=== PATIENT | male | born 2000 | race Caucasian/White ===

== ENCOUNTER 2021-10-04 04:22 | Outpatient (CLI) | payer BC, SELFPAY | END 2021-10-04 04:23 | disposition home or self-care (01) | LOC: AMB 10-21 19:15 | PROVIDERS: PCP Family Medicine; Visit Provider Family Medicine | DX: F91.9 Conduct disorder, unspecified (principal); F10.129 Alcohol abuse with intoxication, unspecified | CPT/HCPCS: A0425; A0427 ==

== ENCOUNTER 2021-10-04 04:53 | Emergency (ER) | payer BC, SELFPAY ==
[2021-10-04 05:10] VITALS: BP 127/80; PULSE 107; RESP 20; TEMP 37.2; O2SAT 95
--- NOTE | 2021-10-04 05:13 | CRLHL7_ITS ---
For Patients: As a result of the Century Cures Act, medical imaging exams and procedure reports are released immediately into your electronic medical record. You may view this report before your referring provider. If you have questions, please contact your health care provider. INDICATION: Alcohol intoxication, fall, head injury TECHNIQUE: CT Head without i.v. contrast. Coronal and sagittal reformats were obtained. COMPARISON: None FINDINGS: The sensitivity and specificity of the exam are moderately limited by artifacts from patient motion. CSF space: The ventricles are normal for age. Brain: No evidence of mass, acute infarction or hemorrhage is seen. No mass-effect or midline shift is seen. The brain parenchyma is otherwise normal in appearance with preservation of the bee-white matter junction. Calvarium: The visualized paranasal sinuses are well aerated. The mastoid air cells are clear. The visualized orbits are grossly unremarkable. The calvarium is unremarkable in appearance with no fractures identified. IMPRESSION: 1. No evidence of acute infarction, intracranial hemorrhage, or mass-effect seen. 2. The sensitivity and specificity of the exam are moderately limited by artifacts from patient motion. Please note that all CT scans at this facility use dose modulation, iterative reconstruction, and/or weight-based dosing when appropriate to reduce radiation dose to as low as reasonably achievable. Dictated by: George Martinez MD @ 10/04/2021 06:05:01 (Electronically Signed)
--- NOTE | 2021-10-04 05:22 | ED.GENADULT ---
HPI - General Adult General Time Seen by Provider: Date Seen: 10/04/21 Stated complaint: Mental Health Time Seen by Provider: 10/04/21 05:13 Source: patient Mode of arrival: EMS Limitations: no limitations History of Present Illness HPI narrative: Patient is a 21-year-old gentleman brought in by EMS for evaluation after he had an outburst at home and was tearing up his room. He is unable to really tell me what happened at home other than the fact he was drinking tonight. He said he had only 3 drinks tonight. Was walking home from a friend's. But does not remember this. He may have fallen and hit his head but is again unclear about this whole recurrence. Is in the [employer], tells me that he is not happy being in the [employer] but he continues to do it. When asked him how much she drinks he is unable to really verbally tell me how much this is. He does say however that he does not do alcohol or drugs and does not taking any other medications. He is willing to get blood tests and get a head CT. Denies any suicidal or homicidal ideation and there is no report of this from the police paramedics or anyone. 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 Location: head Radiation: non-radiation Severity: mild Relieving factors: none Exacerbating factors: none Associated symptoms: denies other symptoms Treatments prior to arrival: none Related Data Home Medications Medication Instructions Recorded Confirmed No Known Home Medications 10/04/21 10/04/21 Allergies Allergy/AdvReac Type Severity Reaction Status Date / Time No Known Drug Allergies Allergy Verified 10/04/21 05:57 Review of Systems Status of ROS: Reports: 10 or more systems reviewed and unremarkable except as noted in History and below [facility] [place] Medical History (Updated 10/04/21 @ 06:05 by Benny Carcamo MD) PTSD (post-traumatic stress disorder) Exam Narrative: Exam Narrative: Patient is alert and oriented but is slightly slurring his words. TMs are normal oropharynx normal he does have horizontal nystagmus bilaterally, cervical spine shows no tenderness there is a red maikol with an abrasion on the right side of his forehead. Chest is clear heart sounds are normal as abdomen soft. No guarding or pedis with no megaly is noted. There is no tremors moves extremities independently and well. As is legs. Neurologically intact in the upper and lower extremities, normal power, both distally and proximally. Const: Vital Signs, click to edit/add: Vital Signs - 24 hr 10/04/21 05:10 Temperature 98.9 F Pulse Rate [Right Pulse Oximeter] 107 H Respiratory Rate 20 Blood Pressure [Ri ght Upper Arm] 127/80 Pulse Oximetry 95 Documenting provider has reviewed patient's vital signs: yes Common normals: no apparent distress, average body habitus, oriented x3, no limitations, healthy appearing, alert and well nourished General appearance: cooperative, comfortable, well kempt, well developed and odor of alcohol detected Nutritional appearance: thin Orientation/consciousness: Yes awake, Yes oriented to person, Yes oriented to place and Yes oriented to time Neuro: Common normals: oriented x3 Sensorium/orientation: awake, alert, oriented to person, oriented to place and oriented to time Psych: Appearance: well kempt Course Reevaluation(s) Reevaluation #1: Woke him up he is able to talk to me he is lucid he is able to walk to the bathroom, he was not slurring his words. I asked him to ice his face, as there will be significant bruising there. But I think at this point he is stable for discharge. He did agree with me that he would consider getting help for his PTSD, he again reiterated that he was not suicidal or homicidal. We will call his mom to pick him up. Time: 06:25 Vital Signs Vital signs: Initial Vital Signs Temperature 98.9 F 10/04/21 05:10 Temperature Source Temporal Artery Scan 10/04/21 05:10 Pulse Rate 107 H 10/04/21 05:10 Pulse Rhythm 10/04/21 05:10 Respiratory Rate 20 10/04/21 05:10 Blood Pressure 127/80 10/04/21 05:10 Blood Pressure Mean 95 10/04/21 05:10 Blood Pressure Position Semi-Fowlers 10/04/21 05:10 Pulse Oximetry 95 10/04/21 05:10 Oxygen Delivery Method 10/04/21 05:10 Vital Signs Temperature 98.9 F 10/04/21 05:10 Pulse Rate 107 H 10/04/21 05:10 Respiratory Rate 20 07/31/22 05:10 Blood Pressure 127/80 10/04/21 05:10 Pulse Oximetry 95 10/04/21 05:10 Temperature 98.9 F 10/04/21 05:10 Pulse Rate 107 H 10/04/21 05:10 Respiratory Rate 20 10/04/21 05:10 Blood Pressure 127/80 10/04/21 05:10 Pulse Oximetry 95 10/04/21 05:10 Medical Decision Making MDM Narrative Medical decision making narrative: Life-threatening differential diagnosis is considered include: Subarachnoid hemorrhage, subdural hemorrhage, epidural hemorrhage. Other differential diagnosis considered include concussion, closed head injury, or neck fracture. Lab Data Labs: Lab Results 10/04/21 10/04/21 Range/Units 05:38 05:38 Sodium 149 (135-149) mmol/L Potassium 4.1 (3.6-5.1) mmol/L Chloride 109 (96-114) mmol/L Carbon Dioxide 26 (20-32) mmol/L BUN 10 (5-24) mg/dL Creatinine 0.7 (0.5-1.5) mg/dL Estimated GFR 134 ml/min Glucose 114 (60-115) mg/dL Calcium 9.3 (8.4-10.6) mg/dL Ethyl Alcohol 0.24 H (0.01-0.03) % Imaging Data CT scan - head: My impression: Nothing acute Discharge Plan Discharge Clinical Impression: History of post traumatic stress disorder Alcohol intoxication Qualifiers: Complication of substance-induced condition: uncomplicated Qualified Code(s): F10.920 - Alcohol use, unspecified with intoxication, uncomplicated Patient Disposition: Home w/ Parent or Adult Condition: Stable Instructions: Post Traumatic Stress Disorder (ED), Alcohol Intoxication (ED), Help Prevent Suicide (ED), Suicide Prevention (ED) Additional Instructions: Home, rest, consider following up for counseling, avoidance of alcohol is suggested, return here suicidal or homicidal ideation. Prescriptions: No Action No Known Home Medications 0RF Follow Up/Referrals: Codey Love MD [Primary Care Provider] - Stand Alone Forms: [employer] Info Instructions
[2021-10-04 05:46] LABS: Basophils Absolute Auto 0.04 K/uL (0.00-0.30); Basophils Percent Auto 0.4 % (0.0-3.0); Eosinophils Absolute Auto 0.25 K/uL (0.00-0.50); Eosinophils Percent Auto 2.8 % (0.0-7.0); Hematocrit 46.9 % (37.0-53.0); Hemoglobin* 15.6 gm/dL (13.5-17.5); Immature Granulocytes Abs Auto 0.02 K/uL (0.00-0.30); Lymphocytes Absolute Auto 2.66 K/uL (0.90-2.90); Lymphocytes Percent Auto 29.5 % (20-44); Mean Corpuscular HGB Conc 33 gm/dL (32-36); Mean Corpuscular Hemoglobin 31 pg (26-34); Mean Corpuscular Volume 92 fL (80-100); Monocytes Percent Auto 7.4 % (0.0-11.0); Neutrophils Absolute Auto 5.38 K/uL (1.7-7.0); Neutrophils Percent Auto 59.7 % (42.0-72.0); Platelet Count* 264 K/uL (140-440); RDW Coefficient of Variation % 12.3 % (11.5-15.5); Red Blood Count 5.11 m/uL (4.30-5.90); White Blood Count* 9.02 K/uL (4.50-11.00)
[2021-10-04 06:06] LABS: Chloride* 109 mmol/L (96-114); Potassium* 4.1 mmol/L (3.6-5.1); Sodium* 149 mmol/L (135-149)
[2021-10-04 06:09] LABS: Blood Urea Nitrogen* 10 mg/dL (5-24); Carbon Dioxide* 26 mmol/L (20-32); Creatinine* 0.7 mg/dL (0.5-1.5); Estimated Glomerular Filt Rate 134 ml/min; Glucose* 114 mg/dL (60-115)
[2021-10-04 06:10] LABS: Calcium* 9.3 mg/dL (8.4-10.6); Ethanol* 0.24 % (0.01-0.03)
[2021-10-04 06:31] LABS: Slide Review Reflex No
== END 2021-10-04 06:55 | disposition home or self-care (01) ==
PROVIDERS: Emergency Provider Family Medicine; PCP Family Medicine
DX: F10.129 Alcohol abuse with intoxication, unspecified (principal); F43.10 Post-traumatic stress disorder, unspecified
CPT/HCPCS: 36415; 70450; 80048; 80306; 82077; 85025; 99284